=== PATIENT | female | born 1930 | race Caucasian/White ===

== ENCOUNTER 2018-10-25 07:48 | Day surgery (SDC) | payer MEDICARE, OTHER ==
[~2018-10-25] VITALS: Ht 157.5 cm; Wt 74.4 kg
[~2018-10-25 07:48] MED LIST: ASPI81CH PO; ATEN25 PO; LEVSOD100 PO
--- NOTE | 2018-10-25 11:11 | NUR ---
"DAY SURGERY RN | ADMIT Patient ambulated to day [facility]. Voided. VSS, A/O. Patient agrees with surgery, states correct side. No issues in day sugery admitting."
--- NOTE | 2018-10-25 12:14 | NUR ---
10/25/18 1214 Allegra Carlton 2GM IVPB GIVEN AT [address] KRAFT.
--- NOTE | 2018-10-25 15:00 | NUR ---
Patient up to Ambulate independently. Gait steady. Discharge instructions reviewed with patient. Patient verbalizes understanding. Copy given to patient to take home. Dressing to procedure site clean, dry, intact with no visible drainage, swelling, erythema or bruising noted. Instructed how to drain ALFA Drain. Patient States Post-Procedure ride home has been arranged. Discharged via wheelchair to private car for ride home.
== END 2018-10-25 15:05 | disposition home or self-care (01) ==
LOC: NM 07:48 → ORSCMMR 07:48 → NM 09:00
PROVIDERS: Surgery
PROC: 0HBU0ZZ Excision of Left Breast, Open Approach (ICD-10-PCS; principal; 2018-10-25 10:30)
PROC: 07B60ZX Excision of Left Axillary Lymphatic, Open Approach, Diagnostic (ICD-10-PCS; principal; 2018-10-25 10:30)
DX: C50.812 Malignant neoplasm of overlapping sites of left female breast (principal); D36.0 Benign neoplasm of lymph nodes; I10 Essential (primary) hypertension; G47.33 Obstructive sleep apnea (adult) (pediatric); Z79.899 Other long term (current) drug therapy; Z79.82 Long term (current) use of aspirin
CPT/HCPCS: 38792; 88307; 88341; 88342; A9520; J0690; J2405; J3010; J7120; Q9968

== ENCOUNTER 2018-11-06 15:42 | Observation (INO) | payer MEDICARE, OTHER ==
[~2018-11-06] VITALS: Ht 160 cm; Wt 73.0 kg
[2018-11-06 17:23] LABS: Albumin, Blood 2.8 g/dL (3.4-5.0); Albumin/Globulin Ratio 0.7 (0.8-1.8); Bilirubin, Total 0.7 mg/dL (0.1-1.0); Bun/Creatinine Ratio 29.2 (12.0-20.0); Calcium, Blood 8.6 mg/dL (8.5-10.1); Creatinine, Blood 1.2 mg/dL (0.40-1.00); Globulin, Blood 4.1 g/dL (2.2-4.0); Potassium, Blood 3.8 mmol/L (3.5-5.5); Total Protein, Blood 6.9 g/dL (6.4-8.2)
[2018-11-06 17:47] LABS: BASOPHILS ABSOLUTE AUTO 0.02 K/mm3 (0.00-0.23); BASOPHILS PERCENT AUTO 0 % (0-2); EOSINOPHILS ABSOLUTE AUTO 0.14 K/mm3 (0.00-0.68); EOSINOPHILS PERCENT AUTO 2 % (0-6); Hematocrit 35.4 % (33.0-51.0); Hemoglobin 11.4 g/dL (11.5-16.0); IMMATURE GRAN ABSOLUTE AUTO 0.03 K/mm3 (0.00-0.10); IMMATURE GRAN PERCENT AUTO 0 % (0-1); LYMPHOCYTES ABSOLUTE AUTO 1.16 K/mm3 (0.84-5.20); LYMPHOCYTES PERCENT AUTO 15 % (21-46); MONOCYTES ABSOLUTE AUTO 0.68 K/mm3 (0.16-1.47); MONOCYTES PERCENT AUTO 9 % (4-13); Mean Corpuscular HGB Conc 32.2 g/dL (31.5-36.5); Mean Corpuscular Volume 90 fL (80-100); Mean Platelet Volume 10.8 fL (9.1-12.4); NEUTROPHILS ABSOLUTE AUTO 5.85 K/mm3 (1.96-9.15); NEUTROPHILS PERCENT AUTO 74 % (41-73); Platelet Count 164 K/mm3 (150-400); RDW Coefficient Variation 14.1 % (11.7-14.2); RDW Standard Deviation 46.4 fL (35.1-46.3); Red Blood Cell Count 3.93 M/mm3 (3.80-5.20); White Blood Cell Count 7.88 K/mm3 (4.00-11.30)
[2018-11-06] MEDS ORDERED: CHOL10002 PO (21:55)
[2018-11-07] MEDS ORDERED: Bactrim Ds Tab1 EACH PO (10:52)
== END 2018-11-07 11:35 | disposition home or self-care (01) ==
LOC: ER 15:42 → SURS 15:43
PROVIDERS: Physician Assistant
DX: T81.49XA Infection following a procedure, other surgical site, initial encounter (principal); E03.9 Hypothyroidism, unspecified; I10 Essential (primary) hypertension; Z79.82 Long term (current) use of aspirin; Z90.12 Acquired absence of left breast and nipple; Z79.899 Other long term (current) drug therapy
CPT/HCPCS: 36415; 80053; 83605; 85025; 87070; 87077; 87147; 87186; 87205; 96365; 99284-25; J0690; J7120